=== PATIENT | female | born 1930 | race Caucasian/White ===

== ENCOUNTER 2016-07-10 21:49 | Emergency (ER) | payer OTHER ==
[~2016-07-10] VITALS: Ht 147.3 cm; Wt 57.4 kg
[~2016-07-10 21:49] MED LIST: ASPI1TAB69 PO; DICY10CA12 PO; ESCI10TA PO; FURO1TAB62 PO; GABA300C5 PO; LEVO50TA4 PO; LIPI40TA PO; METO25TA3 PO; POTA1TAB4 PO; PROT40TA PO; ROPI1TAB PO; TRAZ100T4 PO; VENTAER INH; VITA10002 PO; [UNRECOGNIZED DRUG - CODE] PO
[2016-07-10 21:54] VITALS: BP 165/62; PULSE 67; RESP 18; TEMP 98.6; O2SAT 97
[2016-07-10] MEDS ORDERED: SODIUM CHLOR 0.9% 1000 ML INJ 1,000 ML IV SCH (22:04)
[2016-07-10] MEDS ORDERED: LORazepam 0.5 MG TAB PO ONE (22:15)
[2016-07-10] MEDS ORDERED: SODIUM CHLORIDE 0.9% FLUSH 5 ML FLUSH IVF PRN (22:15)
[2016-07-10 22:28] LABS: AUTOMATED NEUTROPHIL # 5.3 TH/MM3 (1.8-7.7); BASOPHIL % 0.5 % (0.0-2.0); EOSINOPHIL # 0.1 TH/MM3 (0-0.4); EOSINOPHIL % 0.9 % (0.0-4.0); HEMATOCRIT 36.7 % (35.0-46.0); HEMO FLAGS DIFF FINAL; LYMPH % 16.2 % (9.0-44.0); LYMPHOCYTE # 1.1 TH/MM3 (1.0-4.8); MEAN CELL VOLUME 92.1 FL (80.0-100.0); MEAN CORPUSCULAR HEMOGLOBIN 29.8 PG (27.0-34.0); MEAN CORPUSCULAR HGB CONC 32.3 % (32.0-36.0); NEUT % 77.4 % (16.0-70.0); PLATELET COUNT 196 TH/MM3 (150-450); RED BLOOD COUNT 3.98 MIL/MM3 (4.00-5.30); WHITE BLOOD COUNT 6.8 TH/MM3 (4.0-11.0)
--- NOTE | 2016-07-10 22:31 | PD ---
HPI Chief Complaint: General Weakness Time Seen by Provider: 22:00 Travel History International Travel<30 days: No Contact w/Intl Traveler<30days: No Traveled to known affect area: No History of Present Illness HPI The patient is a 86-year-old female who presents to the emergency department with a family member for increasing body movements and generalized weakness. The patient has a history of Parkinson's disease and is currently followed by her neurologist, Dr. Baker. The patient was taking Sinemet 25 mg/ 250 mg 4 times a day, however, recently had a change to 25 mg/100 mg 5 times a day. The patient has a history of chorea/dyskinesia in the past secondary to her Parkinson's medications. The patient was recently started on amantadine, dose unknown, however, they do not have a managing from the pharmacy as of yet. The patient states her symptoms started earlier this afternoon of progressively worsened. The patient also notes shortness of breath which is chronic, secondary to Parkinson's disease, and the patient is on oxygen at home. The patient denies any chest pain, nausea, vomiting, or acute abdominal pain. She does have a history of chronic epigastric abdominal pain with known history of hiatal hernia and previous endoscopies with dilatation. The patient' s primary physician is Dr. Tinoco. 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 ) Immune Disorder: No Implanted Vascular Access Dvce: No Musculoskeletal: No Neurologic: Yes (Parkinson's disease) Parkinson's Disease: Yes Psychiatric: Yes (ANXIETY, DEPRESSION) Reproductive: No Respiratory: Yes Immunizations Current: Yes Sleep Apnea: Yes (2L n/c AT HOME, no cpap) Thyroid Disease: Yes (Hypothyroid) Tetanus Vaccination: < 5 Years Influenza Vaccination: Yes ?: Not Menopausal: Yes : 4 Para: 4 Past Surgical History Abdominal Surgery: No AICD: No Cardiac Surgery: No Ear Surgery: No Endocrine Surgery: No Eye Surgery: Yes (MAINE CATARACT SURGERY) Genitourinary Surgery: No Gynecologic Surgery: Yes (HYSTERECTOMY) Hysterectomy: Yes Joint Replacement: No Neurologic Surgery: Yes (C5 C6 fusion) Oral Surgery: No Pacemaker: No Thoracic Surgery: No Other Surgery: Yes (C5-C6 CERVICAL FUSION ) Social History Alcohol Use: No Tobacco Use: No Substance Use: No Allergies-Medications (Allergen,Severity, Reaction): Coded Allergies: Morphine (Verified Adverse Reaction, Severe, HALLUCINATING, CONFUSION, ) Reported Meds & Prescriptions Reported Meds & Active Scripts Active Sinemet (Carbidopa/Levodopa) 25-250 Mg Tab 1 Tab PO QID Reported Amantadine (Amantadine HCl) 100 Mg Cap 100 Mg PO DAILY Ondansetron Odt 4 Mg Tab 4 Mg SL Q8HR PRN Alprazolam 0.5 Mg Tab 0.5 Mg PO BID PRN Ropinirole 2 Mg Tab 2 Mg PO TID Sinemet (Carbidopa-Levodopa) 25-100 Mg Tab 1 Tab PO 5 TIMES A DAY Vitamin B-12 (Cyanocobalamin) 1,000 Mcg Tab 1,000 Mcg PO DAILY Trazodone (Trazodone HCl) 100 Mg Tab 100 Mg PO HS K-Tab (Potassium Chloride) 20 Meq Tab 20 Meq PO DAILY Protonix (Pantoprazole Sodium) 40 Mg Tab 40 Mg PO DAILY Metoprolol Tartrate 25 Mg Tab 25 Mg PO DAILY PRN Levothyroxine (Levothyroxine Sodium) 50 Mcg Tab 50 Mcg PO DAILY Gabapentin 300 Mg Cap 300 Mg PO BID Lasix (Furosemide) 20 Mg Tab 20 Mg PO DAILY Escitalopram (Escitalopram Oxalate) 10 Mg Tab 10 Mg PO DAILY Dicyclomine (Dicyclomine HCl) 10 Mg Cap 10 Mg PO TID Lipitor (Atorvastatin Calcium) 40 Mg Tab 40 Mg PO HS Aspirin 81 Mg Tabdr 81 Mg PO HS Ventolin Hfa 18 GM Inh (Albuterol Sulfate) 90 Mcg/Act Aer 2 Puff INH Q6H PRN Review of Systems Except as stated in HPI: all other systems reviewed are Neg HENT: No: Lightheadedness Cardiovascular: No: Chest Pain or Discomfort Respiratory: Positive: Shortness of Breath (chronic shortness of breath, on home O2) Gastrointestinal: Positive: Abdominal Pain (chronic epigastric abdominal pain with known history of hiatal hernia. Patient), No: Nausea, Vomiting Musculoskeletal: Positive: Weakness Neurologic: Positive: Weakness, Other (chorea/dyskinesia with history of similar symptoms secondary to Parkinson's medications) Physical Exam Narrative GENERAL: Awake, alert, pleasant 86-year-old female who appears her stated age and is in no acute respiratory distress. SKIN: Warm and dry. HEAD: Atraumatic. Normocephalic. EYES: No injection or drainage. ENT: No nasal bleeding or discharge. Mucous membranes pink and moist. NECK: Trachea midline. No JVD. CARDIOVASCULAR: Regular rate and rhythm. No murmur appreciated. RESPIRATORY: No accessory muscle use. Clear to auscultation. Breath sounds equal bilaterally. GASTROINTESTINAL: Abdomen soft, non-tender, nondistended. No rebound tenderness , guarding, or rigidity. MUSCULOSKELETAL: No obvious deformities. No clubbing. No cyanosis. No edema. NEUROLOGICAL: Awake and alert. No obvious cranial nerve deficits. Dyskinesia noted of the right upper extremity and head. Oriented 4. Moves all 4 extremities. PSYCHIATRIC: Appropriate mood and affect; insight and judgment normal. Data Data Last Documented VS Vital Signs Date Time Temp Pulse Resp B/P Pulse Ox O2 Delivery O2 Flow Rate FiO2 07/10/16 22:43 97 Room Air 07/10/16 22:43 18 07/10/16 22:08 67 07/10/16 21:54 98.6 165/62 Orders Electrocardiogram (07/10/16 22:04) Complete Blood Count With Diff (07/10/16 22:04) Comprehensive Metabolic Panel (07/10/16 22:04) Creatine Kinase (Cpk) (07/10/16 22:04) Troponin I (07/10/16 22:04) Urinalysis - C+S If Indicated (07/10/16 22:04) Blood Glucose (07/10/16 22:04) Ecg Monitoring (07/10/16 22:04) Iv Access Insert/Monitor (07/10/16 22:04) Oximetry (07/10/16 22:04) Oxygen Administration (07/10/16 22:04) Sodium Chloride 0.9% Flush (Ns Flush) (07/10/16 22:15) Sodium Chlor 0.9% 1000 Ml Inj (Ns 1000 M (07/10/16 22:04) Lorazepam (Ativan) (07/10/16 22:15) Amantadine (Symmetrel) (07/10/16 22:45) Labs Laboratory Tests Test 07/10/16 07/10/16 22:15 22:57 White Blood Count 6.8 TH/MM3 Red Blood Count 3.98 MIL/MM3 Hemoglobin 11.9 GM/DL Hematocrit 36.7 % Mean Corpuscular Volume 92.1 FL Mean Corpuscular Hemoglobin 29.8 PG Mean Corpuscular Hemoglobin 32.3 % Concent Red Cell Distribution Width 15.0 % Platelet Count 196 TH/MM3 Mean Platelet Volume 10.3 FL Neutrophils (%) (Auto) 77.4 % Lymphocytes (%) (Auto) 16.2 % Monocytes (%) (Auto) 5.0 % Eosinophils (%) (Auto) 0.9 % Basophils (%) (Auto) 0.5 % Neutrophils # (Auto) 5.3 TH/MM3 Lymphocytes # (Auto) 1.1 TH/MM3 Monocytes # (Auto) 0.3 TH/MM3 Eosinophils # (Auto) 0.1 TH/MM3 Basophils # (Auto) 0.0 TH/MM3 CBC Comment DIFF FINAL Differential Comment Sodium Level 141 MEQ/L Potassium Level 4.4 MEQ/L Chloride Level 103 MEQ/L Carbon Dioxide Level 31.5 MEQ/L Anion Gap 7 MEQ/L Blood Urea Nitrogen 33 MG/DL Creatinine 1.20 MG/DL Estimat Glomerular Filtration 43 ML/MIN Rate Random Glucose 115 MG/DL Calcium Level 9.0 MG/DL Total Bilirubin 0.5 MG/DL Aspartate Amino Transf 20 U/L (AST/SGOT) Alanine Aminotransferase 10 U/L (ALT/SGPT) Alkaline Phosphatase 81 U/L Total Creatine Kinase 128 U/L Troponin I LESS THAN 0.02 NG/ML Total Protein 6.4 GM/DL Albumin 3.8 GM/DL Urine Color YELLOW Urine Turbidity SLIGHT Urine pH 6.0 Urine Specific [place] 1.013 Urine Protein NEG mg/dL Urine Glucose (UA) NEG mg/dL Urine Ketones TRACE mg/dL Urine Occult Blood NEG Urine Nitrite NEG Urine Bilirubin NEG Urine Leukocyte Esterase NEG Urine RBC 0-3 /hpf Urine WBC 0-2 /hpf Urine Squamous Epithelial > 8 /hpf Cells Urine Bacteria OCC /hpf Urine Hyaline Casts 3-5 /lpf Urine Mucus OCC /lpf Microscopic Urinalysis Comment CULT NOT INDICATED MDM Medical Decision Making Medical Screen Exam Complete: Yes Emergency Medical Condition: Yes Medical Record Reviewed: Yes Interpretation(s) EKG reveals normal sinus rhythm with a rate of 69. No ischemic changes or ectopy noted. Differential Diagnosis Differential diagnosis includes medication side effect, dyskinesia, chorea, Ciro's disease, hemiballismus, intracranial tumor, choreoathetoid limb movements. Narrative Course IV was established, labs are drawn and sent, and the patient was placed on cardiac telemetry monitoring and continuous pulse oximetry monitoring. The patient was administered Ativan 0.5 mg orally. A call was placed to the on- call neurologist for her neurologist, Dr. Baker, at 10:30 PM. I discussed the patient with Dr. Alcantara, the on-call neurologist, 10:35 PM. He states the hold the next 2 doses of Requip, administer amantadine 100 mg now and then write for amantadine 100 mg twice a day and have her call her neurologist in the morning. Therefore, amantadine 100 mg was ordered from pharmacy. UA reveals ketones, creatinine is mildly elevated at 1.2, the patient was administered 500 cc of normal saline. The patient will be placed on amantadine 100 mg twice a day and is advised to call her neurologist office in the morning. 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 Amantadine 100 mg twice a day. Call Dr. Baker's office in the morning. Med/Other Pt SpecificInfo: Prescription(s) given, Med Stopped (hold Requip for the next 2 doses) Scripts Amantadine 100 Mg [id number] Mg PO BID #20 CAP Ref 0 Prov:Db Cuadra MD 07/10/16 Disposition: 01 DISCHARGE HOME Condition: Stable Db Cuadra MD Jul 10, 2016 22:31
[2016-07-10 22:34] LABS: CHLORIDE 103 MEQ/L (98-107); POTASSIUM 4.4 MEQ/L (3.5-5.1); SODIUM (NA) 141 MEQ/L (136-145)
[2016-07-10] MEDS ORDERED: SINE25TA PO (22:34)
[2016-07-10] MEDS ORDERED: ROPI2TAB PO (22:34)
[2016-07-10 22:38] LABS: ANION GAP 7 MEQ/L (5-15); BICARBONATE 31.5 MEQ/L (21.0-32.0); BLOOD UREA NITROGEN 33 MG/DL (7-18)
[2016-07-10] MEDS ORDERED: ALPR0.5T3 PO (22:40)
[2016-07-10 22:41] LABS: ALT (GPT) 10 U/L (10-53); AST (GOT) 20 U/L (15-37); GLOMERULAR FILTRATION RATE 43 ML/MIN (>89)
[2016-07-10] MEDS ORDERED: ONDA4TAB7 SL (22:41)
[2016-07-10] MEDS ORDERED: AMAN100C18 PO ×2 (22:42→23:35)
[2016-07-10 22:43] VITALS: RESP 18; O2SAT 95
[2016-07-10 22:43] LABS: TOTAL BILIRUBIN ADULT 0.5 MG/DL (0.2-1.0)
[2016-07-10 22:44] LABS: ALKALINE PHOSPHATASE 81 U/L (45-117); CREATINE KINASE 128 U/L (26-192)
[2016-07-10] MEDS ORDERED: AMANTADINE HCL 100 MG CAP PO ONE (22:45)
[2016-07-10 23:05] LABS: BLOOD, URINE NEG (NEG); GLUCOSE,URINE NEG (NEG); KETONE, URINE TRACE mg/dL (NEG); NITRITE,URINE NEG (NEG)
[2016-07-10 23:25] LABS: URINE COLOR YELLOW (YELLW/STRAW)
[2016-07-10 23:26] LABS: BACTERIA, URINE OCC /hpf; MUCUS URINE OCC /lpf (OCC)
[2016-07-10 23:27] LABS: SQUAMOUS EPITHELIAL CELL URINE > 8 /hpf (0-5)
[2016-07-10 23:28] LABS: COMMENT (UR) CULT NOT INDICATED; CULTURE IF INDICATED CULT NOT INDICATED; RBC, URINE 0-3 /hpf (0-3); WBC, URINE 0-2 /hpf (0-5)
[2016-07-10 23:34] VITALS: BP 179/80; PULSE 68; RESP 18; O2SAT 97
--- NOTE | 2016-07-11 15:32 | EKG ---
Date Performed: 07/10/2016 Time Performed: 22:08:08 PTAGE: 86 years EKG: Sinus rhythm Normal ECG PREVIOUS TRACING : 02/20/2016 20.38 Compared to previous tracing, nonspecific ST abnormality boles s resolved. DOCTOR: Shamir Hall Interpretating Date/Time 07/11/2016 15:31:08
== END 2016-07-10 23:57 | disposition home or self-care (01) ==
LOC: PHED 21:49
DX: G24.9 Dystonia, unspecified (principal); G20 Parkinson's disease; R10.13 Epigastric pain
CPT/HCPCS: 80053; 81001; 82550; 84484; 85025; 93005; 96360; 99285; J7030